=== PATIENT | female | born 1965 | race Caucasian/White ===

== ENCOUNTER 2017-03-31 08:03 | Emergency (ER) | payer SELFPAY ==
[2017-03-31 08:09] VITALS: BMI 24.0
--- NOTE | 2017-03-31 08:12 | PDOC ---
History of Present Illness - History of Present Illness Initial Comments: 03/31/17 09:30 51F w/ no significant PMH presenting with several days of dizziness, abdominal pain, and emesis. Pt reports that 3 days ago, she developed room-spinning for several minutes when she got out of bed. This lasted for several minutes. She developed nausea and abdominal pain followed by several episodes of emesis. Her symptoms improved the next day. However, she had recurrent vertiginous episodes , emesis, a right ear-popping sensation and an occipital headache one day ago. Pt denies hearing loss, tinnitus, and previous viral symptoms. 03/31/17 09:35 03/31/17 09:37 <Jose Pelayo - Last Filed: 03/31/17 09:30> <Ayesha Paniagua - Last Filed: 03/31/17 11:26> - General Chief Complaint: Pain Stated Complaint: HEADACHE, ABD PAIN Time Seen by Provider: 03/31/17 08:12 Past History - Past Medical History Comment:: 03/31/17 09:33 PMH: fibroids PSH: none MEds: none Allergies: NKDA Fam Hx: HTN in mom Social Hx: denies toxic habits - Psycho/Social/Smoking Cessation Hx Suicidal Ideation: No Smoking History: Never smoked Information on smoking cessation initiated: No Hx Alcohol Use: No Drug/Substance Use Hx: No <Jose Pelayo - Last Filed: 03/31/17 09:30> <Ayesha Paniagua - Last Filed: 03/31/17 11:26> - Past Medical History Allergies/Adverse Reactions: Allergies Allergy/AdvReac Type Severity Reaction Status Date / Time No Known Allergies Allergy Verified 03/31/17 08:09 Home Medications: Ambulatory Orders NK [No Known Home Medication] 06/27/15 Review of Systems - Review of Systems Comments:: 03/31/17 09:34 GENERAL: No fever, chills, night sweats, or weakness. HEAD, EYES, EARS, NOSE AND THROAT: No change in vision or sore throat CARDIOVASCULAR: No chest pain or palpitations RESPIRATORY: No cough, wheezing, or hemoptysis. GASTROINTESTINAL: + nausea, + vomiting, no diarrhea, constipation, or blood in the stool. GENITOURINARY: No dysuria, frequency, or urgency MUSCULOSKELETAL: No joint or muscle swelling or pain. SKIN: No rashes or pruritis ENDOCRINE: No increased thirst. No abnormal weight change NEUROLOGIC: + headache, + dizziness, no loss of consciousness, or change in strength/sensation. <Jose Pelayo - Last Filed: 03/31/17 09:30> *Physical Exam - Vital Signs Last Vital Signs Temp Pulse Resp BP Pulse Ox 98.2 F 62 18 119/72 100 03/31/17 08:06 03/31/17 08:06 03/31/17 08:06 03/31/17 08:06 03/31/17 08:06 - Physical Exam Comments: 03/31/17 09:36 GENERAL: Awake, alert, and fully oriented, in no acute distress HEAD: normocephalic, atraumatic HEENT: PERRLA, EOMI, significant cerumen obstructing right tympanic membrane NECK: Normal ROM, supple, no lymphadenopathy, JVD, or masses HEART: Regular rate and rhythm, normal S1 and S2, no murmurs, rubs or gallops, peripheral pulses normal and equal bilaterally. LUNGS: CTAB, no wheezing, no rales ABDOMEN: Soft, nontender, nondistended, normoactive bowel sounds. No guarding, no rebound. No masses EXTREMITIES: Normal range of motion, no edema. SKIN: Warm, dry, no rashes or lesions noted. NEUROLOGICAL: Cranial nerves II through XII grossly intact. Normal speech, no focal sensorimotor deficits [place] Maneuver: no nystagmus appreciated when pt supine or in sitting position 03/31/17 09:39 <Jose Pelayo - Last Filed: 03/31/17 09:30> - Vital Signs Last Vital Signs Temp Pulse Resp BP Pulse Ox 98.2 F 62 18 119/72 100 03/31/17 08:06 03/31/17 08:06 03/31/17 08:06 03/31/17 08:06 03/31/17 08:06 <Ayesha Paniagua - Last Filed: 03/31/17 11:26> ED Treatment Course - LABORATORY CBC & Chemistry Diagram: 03/31/17 09:50 03/31/17 09:50 - ADDITIONAL ORDERS Additional order review: Laboratory Results 03/31/17 09:50 Sodium 138 Potassium 4.4 Chloride 105 Carbon Dioxide 28 Anion Gap 5 L BUN 12 Creatinine 0.6 D Random Glucose 94 Calcium 9.0 03/31/17 09:50 RBC 4.61 MCV 84.5 MCHC 34.2 RDW 13.9 MPV 9.0 Neutrophils % 59.7 D Lymphocytes % 28.2 D Monocytes % 7.2 Eosinophils % 4.4 Basophils % 0.5 - Medications Given in the ED: ED Medications Discontinued Medications Generic Name Dose Route Start Last Admin Trade Name Frank PRN Reason Stop Dose Admin Meclizine HCl 25 mg 03/31/17 09:21 03/31/17 09:32 Antivert - PO 03/31/17 09:22 25 mg ONCE ONE Administration <Ayesha Paniagua - Last Filed: 03/31/17 11:26> Medical Decision Making - Medical Decision Making 03/31/17 09:37 51F w/ no significant PMH presenting with several days of vertigo, abdominal pain, emesis, and headache consistent with BPPV. Due to occipital headache, will rule out any neuro problems with head CT. -CBC -BMP -non-con CT -given meclizine 25mg <Jose Pelayo - Last Filed: 03/31/17 09:30> *DC/Admit/Observation/Transfer <Jose Pelayo - Last Filed: 03/31/17 09:30> - Discharge Dispostion Admit: No <Ayesha Paniagua - Last Filed: 03/31/17 11:26> Diagnosis at time of Disposition: Vertigo - Discharge Dispostion Disposition: HOME Condition at time of disposition: Stable
--- NOTE | 2017-03-31 08:14 | PDOC ---
Attending Attestation - Resident Resident Name: PierceJose - ED Attending Attestation I have performed the following: I have examined & evaluated the patient, The case was reviewed & discussed with the resident, I agree w/resident's findings & plan, Exceptions are as noted - HPI HPI: 51 yo F presents with 3 day history of dizziness. She states that intermittently she will experience sensation of the room spinning around her, associated with popping feeling in the R ear. Denies tinnitus, weakness, numbness. She has not had the symptoms in the past. No leakage of fluid from the ear. - Physicial Exam PE: GENERAL: Awake, alert, and fully oriented, in no acute distress HEAD: No signs of trauma EYES: PERRLA, EOMI, sclera anicteric, conjunctiva clear ENT: Auricles normal inspection, hearing grossly normal, nares patent, oropharynx clear without exudates. Moist mucosa. L TM normal. R TM obscured by cerumen. NECK: Normal ROM, supple, no lymphadenopathy, JVD, or masses LUNGS: Breath sounds equal, clear to auscultation bilaterally. No wheezes, and no crackles HEART: Regular rate and rhythm, normal S1 and S2, no murmurs, rubs or gallops ABDOMEN: Soft, nontender, normoactive bowel sounds. No guarding, no rebound. No masses EXTREMITIES: Normal range of motion, no edema. No clubbing or cyanosis. No cords, erythema, or tenderness NEUROLOGICAL: Cranial nerves II through XII grossly intact. Normal speech, normal gait SKIN: Warm, Dry, normal turgor, no rashes or lesions noted. - Medical Decision Making Pt with symptoms and exam that is consistent with BPPV, likely related to R cerumen impaction. CTH was obtained based on c/o occipital headache, which was negative. Will treat with meclizine. Stable for DC home.
[2017-03-31] MEDS ORDERED: MECLIZINE HCL 25 MG TABLET (FP) PO ONE (09:21)
[2017-03-31 10:07] LABS: BASOPHIL 0.5 % (0-2.0); EOSINOPHIL 4.4 % (0-4.5); MCH 28.9 pg (25.7-33.7); MCHC 34.2 g/dl (32.0-36.0); MEAN CELL VOLUME 84.5 fl (80-96); NEUTROPHILS 59.7 % (42.8-82.8); PLATELET COUNT 226 K/MM3 (134-434); RDW 13.9 % (11.6-15.6); WHITE BLOOD COUNT 8.1 K/mm3 (4.0-10.0)
[2017-03-31 10:25] LABS: ANION GAP 5 (8-16); CO2 28 mmol/L (21-32); CREATININE 0.6 mg/dL (0.55-1.02); GLUCOSE,RANDOM 94 mg/dL (74-106)
[2017-03-31 12:00] VITALS: BP 123/89; PULSE 87; TEMP 98
== END 2017-03-31 12:00 | disposition home or self-care (01) ==
LOC: JER 08:03
DX: R42 Dizziness and giddiness (principal)
CPT/HCPCS: 36415; 70450-TC; 80048; 85025; 99282-25

== ENCOUNTER 2020-03-30 14:22 | Emergency (ER) | payer OTHER ==
[2020-03-30 14:38] VITALS: BMI 26.5
--- NOTE | 2020-03-30 14:44 | PDOC ---
History of Present Illness - General Chief Complaint: Weakness Stated Complaint: WEAKNESS Time Seen by Provider: 03/30/20 14:42 - History of Present Illness Initial Comments: Pt is a 54yo F with PMH Covid+ in October, who presents with weakness. Pt states that symptoms began 2 hours ago when she was working. Reports feelings of di ssociation, generalized weakness, b/l hand paresthesias, and unsteady gait. She states that she was on the phone with her daughter, when she felt subjective facial drooping, tongue numbness, slurred speech and "eyes feel heavy", although the daughter reports that there were no facial changes, nor slurred speech. However, the daughter states that her mother is not acting normally/ is acting slower than usual. Was driven to ED by her employer who gave her water and a slice of pizza, after eating the pizza, reports nausea, denies vomiting. Denies f/c, change in vision, headache, chest pain, shortness of breath, abdominal pain, diarrhea/constipation. PMH: denies PSHx: denies Meds: denies All: NKDA Social: denies tobacco, etoh, recreational drug use. Works as [employer]. Review of Systems CONSTITUTIONAL:reports generalized weakness, denies fever, chills, diaphoresis, malaise, loss of appetite HEENT:denies rhinorrhea, nasal congestion, sore throat, ear pain, eye pain, visual Changes CARDIOVASCULAR:denies chest pain, syncope, palpitations RESPIRATORY:denies cough, shortness of breath, dyspnea with exertion, orthopnea, wheezing, hemoptysis GASTROINTESTINAL: reports nausea, denies abdominal pain, abdominal distension, vomiting, diarrhea, constipation, melena, hematochezia GENITOURINARY:denies dysuria, frequency, urgency, hematuria, flank pain MUSCULOSKELETAL:reports neck pain, back pain (chronic) HEMATOLOGIC/IMMUNOLOGIC:denies easy bleeding, easy bruising ENDOCRINE: denies unexplained weight gain, unexplained weight loss NEUROLOGIC:reports lightheadedness/dizziness, focal b/l hand paresthesias, unsteady gait; denies headache, loss of consciousness, bladder or bowel incontinence SKIN:denies rash, itching, pallor Physical Exam General: awake, AOX4, in no acute distress, well developed, well nourished Head: normocephalic, atraumatic Eyes: PERRL, EOMI, anicteric sclera, conjunctiva clear ENT: Auricles normal inspection, hearing grossly normal, TMs clear bilaterally, nares patent, oropharynx clear without exudates. No nasal congestion Moist mucous membranes Neck: supple, normal ROM, no LAD, JVD or masses Lung: equal breath sounds b/l, CTA b/l, no crackles, wheezes; no distress, speaks full sentences Heart: RRR, normal S1, S2, no murmurs, rubs, gallops Abdomen: soft, non tender, normoactive bowel sounds, no guarding, rebound, masses Extremities: normal ROM, no edema, no erythema or tenderness, DP/PT pulses 2+ and symmetric, no clubbing, cyanosis Neuro: CN2-12 intact, moves all extremities, normal speech, normal gait Motor: The upper extremities are 5/5 in all muscle groups. The lower extremities are 5/5 in all muscle groups. No pronator drift. Sensation: Sensation is intact to light touch throughout. Cerebellar: [id number] is normal in both upper extremities. Vibb-[id number]-yndk is normal in both lower extremities. Skin: warm, dry, no rashes or lesions noted 03/30/20 16:19 NIH Stroke Scale - Last Known Well Date/Time & Onset Date Last Known Well: 03/30/20 Time Last Known Well: 01:30 - Initial Evaluation Level of consciousness: Alert Ask patient the month and their age: Answers both correctly Ask patient to open & close eyes; make fist and let go: Obeys both correctly Best gaze (horizontal eye movement): Normal Visual field testing: No visual field loss Facial paresis (Show teeth/raise eyebrows/close eyes tight): Normal symmetrical movement Motor Function: Left Arm: Normal Motor Function: Right Arm: Normal (extends arm 90 (or 45) degrees for 10 seconds without drift Motor Function: Left Leg: Normal (extends leg 30 degrees for 5 seconds without drift) Motor Function: Right Leg: Normal (extends leg 30 degrees for 5 seconds without drift) Limb Ataxia: No ataxia Sensory(Use pinprick test arms,legs,trunk,face/side to side): Normal Best language (Describe picture, name items, read sentences): No Aphasia Dysarthria (read several words): Normal articulation Extinction and Inattention: No abnormality - Total Score NIH Stroke Scale Score: 0 Past History - Medical History Allergies/Adverse Reactions: Allergies Allergy/AdvReac Type Severity Reaction Status Date / Time No Known Allergies Allergy Verified 03/30/20 14:38 Home Medications: Ambulatory Orders Meclizine HCl [Antivert -] 25 mg PO QID #20 tablet 03/30/20 COPD: No - Reproductive History Is Patient Now?: No - Immunization History Immunization Up to Date: No - Psycho-Social/Smoking History Smoking History: Never smoked Have you smoked in the past 12 months: No Information on smoking cessation initiated: No - Substance Abuse Hx (Audit-C & DAST Scrn) How often the patient has a drink containing alcohol: Never Score: In Men: 4 or > Positive; In Women: 3 or > Positive: 0 Screen Result (Pos requires Nsg. Audit-10AR): Negative In the last yr the pt used illegal drug/Rx for NonMed reason: No Score: Yes response is considered Positive: 0 Screen Result (Positive result requires Nsg. DAST-10): Negative *Physical Exam - Vital Signs Last Vital Signs Temp Pulse Resp BP Pulse Ox 97.6 F 80 16 144/52 L 100 03/30/20 14:36 03/30/20 14:36 03/30/20 14:36 03/30/20 14:36 03/30/20 14:36 ED Treatment Course - LABORATORY CBC & Chemistry Diagram: 03/30/20 15:37 03/30/20 15:37 Medical Decision Making - Medical Decision Making Pt is a 54yo F with PMH Covid+ in October, who presents with weakness [id number], no focal neuro deficits. Vital Signs Period Temp Pulse Resp BP Sys/Blevins Pulse Ox Last 24 Hr 97.6 F 80 16 144/52 100 DDx: vertigo, TIA/CVA, infection Plan: labs, EKG, CXR, CT head EKG: HR 66bpm, normal sinus rhythm, NJ 140ms, QRS 78ms, QTC 417ms, non specific T wave abnormality CXR: midline airway, appropriate vascular markings, no blunting of costophrenic angle, no cardiomegaly, no consolidations/effusions as read by ED staff 03/30/20 16:32 Labs: no anemia, no leukocytosis 03/30/20 16:50 Labs: electrolytes WNL, no KENDRA, troponin WNL 03/30/20 16:52 CT head: no CT evidence of acute intracranial pathology On reassessment, patient states that she feels significantly better, denies weak ness, paresthesias, dizziness. 03/30/20 18:05 UA: -LE, -nitrites; trace ketonuria pending MRI 03/30/20 21:46 MRI: no acute infarct Patient feels well without complaints. Patient stable for discharge. Informed of all lab and imaging results. Given follow up instructions and strict return precautions. Patient expressed understanding and agree to plan Disposition Discharge to home Discharge - Discharge Information Problems reviewed: Yes Clinical Impression/Diagnosis: Transient alteration of awareness Condition: Stable - Admission No - Additional Discharge Information Prescriptions: Meclizine HCl [Antivert -] 25 mg PO QID #20 tablet - Follow up/Referral Referrals: [facility] [place] [Provider Group] Malcom Suazo MD [Staff Physician] - Dillan Kaur MD [Staff Physician] - - Patient Discharge Instructions Patient Printed Discharge Instructions: DI for Dizziness-Nonvertigo Additional Instructions: You came into the ER for weakness. In the ED, you were evaluated with blood tests, CT of your head, and MRI of your head. Your blood tests were normal; you do not have an infection, you do not have low blood count (anemia). The imaging of your head is normal; you were given a copy of your MRI report. You do not appear to be an acute need for immediate hospitalization You were advised to follow up with your primary care doctor within 1-2 weeks. Come back to the ER immediately with any new or worsening concerns, such as severe headache, change in your vision, inability to eat or drink, persistent vomiting, or difficulty walking. Thank you for coming to the [facility] ER. We hope you feel better soon! - Post Discharge Activity
[2020-03-30] MEDS ORDERED: ONDANSETRON 4 MG/2 ML VIAL IVPUSH ONE (15:32)
[2020-03-30] MEDS ORDERED: SODIUM CHLORIDE 0.9% 500 ML INFUS.BAG IV ONE (15:32)
[2020-03-30] MEDS ORDERED: MECLIZINE HCL 25 MG TABLET (FP) PO ONE (15:32)
[2020-03-30] MEDS ORDERED: MECLIZINE HCL 25 MG TABLET (FP) ONE (15:35)
--- NOTE | 2020-03-30 16:09 | PDOC ---
Attending Attestation - Resident Resident Name: ElamBianca - ED Attending Attestation I have performed the following: I have examined & evaluated the patient, The case was reviewed & discussed with the resident, I agree w/resident's findings & plan - HPI HPI: 03/30/20 16:02 54y/o F no sign pmh other than COVID+ in December p/w episode of AMS/light- headedness. 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 felt like she was going to pass out but no lanza/vision change/speech change/focal weakness. Pt expressed difficulty ambulating because of b/l leg weakness though feels she may have been falling to the right. no cp/palp/sob, no recent f/c/dehydration. pt texted her daughter around 2:50 and was coherent. pt now in ED, feels much better, but her pt and daughter, still not returned to baseline. no h/o similar events. - Physicial Exam PE: 03/30/20 16:06 vss alert, pleasant. following commands, answers all questions coherently and appropriately but speaking slowly perrl, eomi, neck supple s1s2 rrr, no audible murmur ctab abd benign NEURO: Mental status: The patient is alert and oriented x3. Cranial nerves: Cranial nerves II through XII are intact Motor: The upper extremities are 5 over 5 in all muscle groups. The lower extremities are 5 over 5 in all muscle groups. No pronator drift. Sensation: Sensation is intact to light touch throughout. Cerebellar: [id number]-[id number]-[id number] is normal in both upper extremities. Jsoz-rsdb-noem is normal in both lower extremities. Reflexes: 2+ and symmetric in the upper and lower extremities. Gait: deferred for now - Medical Decision Making 03/30/20 16:09 54y/o F with episode of AMS/generalized weakness, began abruptly about 2h ago and slowly improving. no focal deficits on neuro exam. ? orthostatic/vasovagal episode, ? infectious/metabolic, seems less likely acute cardiac, but TIA/CVA on ddx, moreso in light of recent COVID+ diagnosis. labs, ua ekg, cxr ct head, consider MRI iv fluids reassess Heart Score/ECG Review #1 ECG reviewed & interpreted by me at: 15:48 General ECG Interpretation: Sinus Rhythm, Normal Rate (66), Normal Intervals (qtc 417), No acute ischemic changes (nonspecific T wave changes V4-6) NIH Stroke Scale - Last Known Well Date/Time & Onset Date Last Known Well: 03/30/20 Time Last Known Well: 13:50 - Initial Evaluation Level of consciousness: Alert Ask patient the month and their age: Answers both correctly Ask patient to open & close eyes; make fist and let go: Obeys both correctly Best gaze (horizontal eye movement): Normal Visual field testing: No visual field loss Facial paresis (Show teeth/raise eyebrows/close eyes tight): Normal symmetrical movement Motor Function: Left Arm: Normal Motor Function: Right Arm: Normal (extends arm 90 (or 45) degrees for 10 seconds without drift Motor Function: Left Leg: Normal (extends leg 30 degrees for 5 seconds without drift) Motor Function: Right Leg: Normal (extends leg 30 degrees for 5 seconds without drift) Limb Ataxia: No ataxia Sensory(Use pinprick test arms,legs,trunk,face/side to side): Normal Best language (Describe picture, name items, read sentences): No Aphasia Dysarthria (read several words): Normal articulation Extinction and Inattention: No abnormality - Total Score NIH Stroke Scale Score: 0 Discharge - Discharge Information Problems reviewed: Yes Clinical Impression/Diagnosis: Transient alteration of awareness Condition: Fair - Follow up/Referral - Patient Discharge Instructions - Post Discharge Activity
[2020-03-30 16:23] LABS: BASO % 0.4 % (0-2.0); EOS % 3.4 % (0-4.5); HEMATOCRIT 39.2 % (32.4-45.2); LYMPH % 22.4 % (8-40); MCH 28.2 pg (25.7-33.7); MCHC 33.1 g/dl (32.0-36.0); MEAN CELL VOLUME 85.1 fl (80-96); MEAN PLT VOLUME 9.8 fl (7.5-11.1); NEUT % 68.8 % (42.8-82.8); PLATELET COUNT 228 K/MM3 (134-434); RBC 4.61 M/mm3 (3.60-5.2); RDW 14.4 % (11.6-15.6); WHITE BLOOD COUNT 7.1 K/mm3 (4.0-10.0)
[2020-03-30 16:48] LABS: ALBUMIN 4.2 g/dl (3.4-5.0); ALK PHOS 79 U/L (45-117); ANION GAP 8 MMOL/L (8-16); BILIRUBIN,TOTAL 0.3 mg/dL (0.2-1); BLOOD UREA NITROGEN 14.1 mg/dL (7-18); CALCIUM 9.3 mg/dL (8.5-10.1); CHLORIDE 103 mmol/L (98-107); CO2 28 mmol/L (21-32); CREATININE 0.7 mg/dL (0.55-1.3); GLUCOSE,RANDOM 108 mg/dL (74-106); LIPASE 92 U/L (73-393); POTASSIUM 4.5 mmol/L (3.5-5.1); SGOT/AST 21 U/L (15-37); SGPT/ALT 22 U/L (13-61); SODIUM 139 mmol/L (136-145); TOT PROT 7.7 g/dl (6.4-8.2)
[2020-03-30 17:43] VITALS: BP 135/69; PULSE 70; TEMP 98.3
[2020-03-30 17:55] LABS: URINE APPEARANCE CLEAR; URINE BILIRUBIN NEGATIVE (NEGATIVE); URINE COLOR YELLOW; URINE GLUCOSE (UA) NEGATIVE (NEGATIVE); URINE KETONE TRACE (NEGATIVE); URINE LEUK ESTERASE NEGATIVE (NEGATIVE); URINE NITRITE NEGATIVE (NEGATIVE); URINE PROTEIN NEGATIVE (NEGATIVE); URINE UROBILINOGEN 0.2 mg/dL (0.2-1.0)
--- NOTE | 2020-03-31 12:56 | EKG ---
Test Reason : Blood Pressure : / mmHG Vent. Rate : 066 BPM Atrial Rate : 066 BPM P-R Int : 140 ms QRS Dur : 078 ms QT Int : 398 ms P-R-T Axes : 071 050 019 degrees QTc Int : 417 ms POOR DATA QUALITY, INTERPRETATION MAY BE ADVERSELY AFFECTED NORMAL SINUS RHYTHM WITH SINUS ARRHYTHMIA NONSPECIFIC T WAVE ABNORMALITY ABNORMAL ECG NO PREVIOUS ECGS AVAILABLE Confirmed by ELMA SWIFT MD ([id number]) on 03/31/2020 12:55:48 PM Referred By: Confirmed By:ELMA SWIFT MD
== END 2020-03-30 23:05 | disposition home or self-care (01) ==
LOC: JER 14:22
PROC: 3E0333Z Introduction of Anti-inflammatory into Peripheral Vein, Percutaneous Approach (ICD-10-PCS; principal; 2020-03-30)
DX: R40.4 Transient alteration of awareness (principal)
CPT/HCPCS: 36415; 70450-TC; 70551-TC; 71045-TC-FY; 80053; 81003; 83690; 84484; 85025; 93005; 93010; 99285-25